=== PATIENT | male | born 1970 | race Caucasian/White ===

== ENCOUNTER 2019-11-12 22:17 | Emergency (ER) | payer OTHER ==
[~2019-11-12] VITALS: Ht 180.3 cm; Wt 113.4 kg
[2019-11-12 22:20] VITALS: BP 130/78
== END 2019-11-13 00:53 | disposition home or self-care (01) ==
LOC: ER 22:22
DX: I83.892 Varicose veins of left lower extremity with other complications (principal)
CPT/HCPCS: 99283; A6403